=== PATIENT | female | born 1950 | race African-American/Black ===

== ENCOUNTER 2018-06-02 15:42 | Emergency (ER) | payer MEDICARE ==
[~2018-06-02] VITALS: Ht 160 cm; Wt 51.0 kg
[~2018-06-02 15:42] MED LIST: TYLENOL 4 PO
[2018-06-02 15:55] VITALS: BP 142/75
== END 2018-06-03 | disposition left against medical advice (07) ==
LOC: ER 19:10
DX: G43.809 Other migraine, not intractable, without status migrainosus (principal)
CPT/HCPCS: 99281

== ENCOUNTER 2020-01-03 11:07 | Emergency (ER) | payer MEDICARE ==
[~2020-01-03] VITALS: Ht 160 cm; Wt 50.0 kg
[2020-01-03 11:35] VITALS: BP 154/77
[2020-01-03] MEDS ORDERED: HYDROCODONE/ACETAMINOPHEN 5/325MG TABLET PO ONE (12:00)
== END 2020-01-03 13:50 | disposition home or self-care (01) ==
LOC: ER 13:30
DX: S00.83XA Contusion of other part of head, initial encounter (principal); G43.909 Migraine, unspecified, not intractable, without status migrainosus; J44.9 Chronic obstructive pulmonary disease, unspecified; X58.XXXA Exposure to other specified factors, initial encounter; W18.39XA Other fall on same level, initial encounter; Y93.89 Activity, other specified; Y92.89 Other specified places as the place of occurrence of the external cause; Y99.8 Other external cause status
CPT/HCPCS: 99283

== ENCOUNTER 2020-05-11 11:19 | Inpatient (IN) | payer MEDICARE ==
[~2020-05-11] VITALS: Ht 160 cm; Wt 44.9 kg
[~2020-05-11 11:19] MED LIST changes: +METH-611 PO; -TYLENOL 4 PO
[2020-05-11 13:39] LABS: BASOPHILS % 0.5 % (0.0-2.0); EOSINOPHILS % 0.6 % (0.0-5.0); HEMATOCRIT. 38.9 % (36.0-48.0); HEMOGLOBIN. 13.6 g/dL (12.0-16.0); LYMPHOCYTES % 28.2 % (20.0-50.0); MEAN CORPUSCULAR HEMOGLOBIN 32.9 pg (28.0-32.0); MEAN CORPUSCULAR VOLUME 94.3 fL (81.0-99.0); MEAN PLATELET VOLUME 9.6 fl (7.4-10.4); MONOCYTES % 10.2 % (2.0-8.0); NEUTROPHILS % 60.5 % (40.0-76.0); PLATELET 158 x1000/uL (130-400); RED BLOOD CELL COUNT 4.13 mill/uL (4.2-5.4); RED CELL DISTRIBUTION WIDTH 13.1 % (11.6-14.6)
[2020-05-11 13:44] LABS: CHLORIDE 101 mEq/L (98-107)
[2020-05-11 16:00] VITALS: BP 137/80
[2020-05-11 16:02] LABS: *AMPHETAMINES SCREEN URINE NEGATIVE (NEGATIVE)
[2020-05-11 16:03] LABS: *BARBITURATES SCREEN URINE NEGATIVE (NEGATIVE); *BENZODIAZEPINES SCREEN URINE NEGATIVE (NEGATIVE); *COCAINE SCREEN URINE NEGATIVE (NEGATIVE); CANNABINOID URINE SCREEN NEGATIVE (NEGATIVE); METHADONE URINE SCREEN NEGATIVE (NEGATIVE); OPIATES URINE SCREEN PRESUMTIVE POSITIVE (NEGATIVE); PHENCYCLIDINE URINE SCREEN NEGATIVE (NEGATIVE)
[2020-05-11 17:59] VITALS: BP 137/80
[2020-05-11 20:00] VITALS: BP 165/54
[2020-05-11] MEDS ORDERED: ONDANSETRON HCL 4MG/2ML INJ IV PRN (22:00)
[2020-05-11] MEDS ORDERED: DIPHENHYDRAMINE 50MG/ML VIAL IV PRN (22:00)
[2020-05-11] MEDS ORDERED: ZOLPIDEM TARTRATE 5MG TABLET PO PRN (22:00)
[2020-05-11] MEDS ORDERED: GUAIFENESIN 200MG/10ML SUGAR FREE UDC PO PRN (22:00)
[2020-05-11] MEDS ORDERED: CLONIDINE 0.1MG TABLET PO PRN (22:00)
[2020-05-11] MEDS ORDERED: ACETAMINOPHEN 325MG TABLET PO PRN ×2 (22:00)
[2020-05-11] MEDS ORDERED: MAGNESIUM/ALUMINUM HYDROXIDE/SIMETHICONE 30ML UDC PO PRN (22:00)
[2020-05-11] MEDS ORDERED: IPRATROPIUM/ALBUTEROL 0.5-3(2.5)MG/3ML NEB HHN PRN (22:00)
[2020-05-11] MEDS ORDERED: ACETAMINOPHEN WITH CODEINE 300/60MG TABLET PO PRN (22:00)
[2020-05-11] MEDS ORDERED: MAGNESIUM HYDROXIDE 400MG/5ML 30ML UDC PO PRN (22:00)
[2020-05-11] MEDS: POTASSIUM CHLORIDE 20MEQ TABLET SR PO SCH (22:34)
[2020-05-11] MEDS: MORPHINE SULFATE 2 MG/ML CPJ (NOT FOR IM USE) IV PRN (22:35)
[2020-05-11] MEDS: SODIUM CHLORIDE 0.9% INJ 3ML FLUSH IVF SCH (22:36)
[2020-05-12] VITALS: BP 119/61
[2020-05-12] MEDS: POTASSIUM CHLORIDE 20MEQ TABLET SR PO NR ×2 (03:00→07:01)
[2020-05-12] MEDS: POTASSIUM CHLORIDE 20MEQ TABLET SR PO SCH (03:14)
[2020-05-12 04:00] VITALS: BP 133/63
[2020-05-12] MEDS: MORPHINE SULFATE 2 MG/ML CPJ (NOT FOR IM USE) IV PRN (05:20)
[2020-05-12] MEDS: SODIUM CHLORIDE 0.9% INJ 3ML FLUSH IVF SCH ×3 (06:00→20:48)
[2020-05-12 07:15] LABS: CHLORIDE 106 mEq/L (98-107)
[2020-05-12 08:00] VITALS: BP 120/68
[2020-05-12] MEDS: NICOTINE 14MG PATCH TD SCH (08:23)
[2020-05-12] MEDS: BUDESONIDE 0.5MG/2ML NEB HHN SCH ×2 (10:04→21:27)
[2020-05-12 11:57] VITALS: BP 104/46
[2020-05-12 16:00] VITALS: BP 100/59
[2020-05-12 20:00] VITALS: BP 123/75
[2020-05-12] MEDS ORDERED: MAGNESIUM 2 G PREMIX 50 ML IV SCH (20:00)
[2020-05-12 20:07] LABS: CHLORIDE 104 mEq/L (98-107)
[2020-05-13] VITALS: BP 133/85
[2020-05-13 04:00] VITALS: BP 131/62
[2020-05-13] MEDS: SODIUM CHLORIDE 0.9% INJ 3ML FLUSH IVF SCH ×2 (06:27→13:49)
[2020-05-13 08:00] VITALS: BP 100/41
[2020-05-13 08:01] LABS: T4 FREE 1.33 ng/dL (0.76-1.46)
[2020-05-13] MEDS: NICOTINE 14MG PATCH TD SCH (08:56)
[2020-05-13] MEDS: BUDESONIDE 0.5MG/2ML NEB HHN SCH (09:47)
[2020-05-13 12:14] VITALS: BP 110/50
[2020-05-13] MEDS ORDERED: KETOROLAC 15MG/ML VIAL IV NR (13:30)
[2020-05-13 14:24] VITALS: BP 110/50
== END 2020-05-13 19:19 | disposition home or self-care (01) | DRG 641 ==
LOC: ER 11:19 → 8WST 14:38 → EDBEDREQTM 14:43 → ENRESERV 15:51 → CANRESERV 15:58 → ENRESERV 15:58
PROVIDERS: ADMIT Internal Medicine; ATTEND Internal Medicine
DX: E87.6 Hypokalemia (principal); G43.909 Migraine, unspecified, not intractable, without status migrainosus; J44.9 Chronic obstructive pulmonary disease, unspecified; F17.210 Nicotine dependence, cigarettes, uncomplicated; E03.9 Hypothyroidism, unspecified; Z90.710 Acquired absence of both cervix and uterus; Z79.899 Other long term (current) drug therapy
CPT/HCPCS: 36415; 71045; 80048; 80051; 80053; 80305; 83605; 83735; 83880; 84439; 84443; 84481; 84484; 85025; 93005; 94640; 99285; J2270; J3475

== ENCOUNTER 2020-10-22 04:29 | Emergency (ER) | payer MEDICARE ==
[~2020-10-22] VITALS: Ht 160 cm; Wt 49.0 kg
[2020-10-22 04:31] VITALS: BP 137/60
[2020-10-22] MEDS ORDERED: ACETAMINOPHEN 325MG TABLET PO ONE (05:30)
[2020-10-22] MEDS ORDERED: IBUPROFEN 600MG TABLET PO ONE (05:30)
[2020-10-22] MEDS ORDERED: AMOXICILLIN/POTASSIUM CLAVULANATE 500/125MG TAB PO ONE (05:30)
[2020-10-22] MEDS ORDERED: OXYCODONE HCL 5MG TABLET PO ONE (05:45)
== END 2020-10-22 06:34 | disposition home or self-care (01) ==
LOC: ER 04:29
DX: K02.9 Dental caries, unspecified (principal); K08.89 Other specified disorders of teeth and supporting structures; G43.909 Migraine, unspecified, not intractable, without status migrainosus; Z90.710 Acquired absence of both cervix and uterus; Z98.890 Other specified postprocedural states
CPT/HCPCS: 99283

== ENCOUNTER 2021-07-22 18:25 | Emergency (ER) | payer MEDICARE ==
[~2021-07-22 18:25] MED LIST changes: -METH-611 PO; +METH-819 PO
== END 2021-07-22 18:59 | disposition left against medical advice (07) ==
LOC: ER 18:25
DX: Z53.21 Procedure and treatment not carried out due to patient leaving prior to being seen by health care provider (principal)

== ENCOUNTER 2021-09-22 07:25 | Emergency (ER) | payer MEDICARE ==
[~2021-09-22] VITALS: Ht 160 cm; Wt 65.0 kg
[2021-09-22] MEDS ORDERED: PENICILLIN V POTASSIUM 250MG TABLET PO STA (08:22)
[2021-09-22] MEDS ORDERED: NAPR-1176 MT (08:29)
[2021-09-22] MEDS ORDERED: PENI500T MT ×2 (08:29→08:56)
[2021-09-22] MEDS ORDERED: OXYCODONE HCL/ACETAMINOPHEN 5/325MG TABLET PO ONE (08:30)
[2021-09-22 08:39] VITALS: BP 135/97
[2021-09-22] MEDS ORDERED: HYDR-4001 MT (08:56)
== END 2021-09-22 08:55 | disposition home or self-care (01) ==
LOC: ER 07:25
DX: K04.7 Periapical abscess without sinus (principal)
CPT/HCPCS: 99283

== ENCOUNTER 2023-05-30 12:22 | Inpatient (IN) | payer MEDICARE ==
[~2023-05-30] VITALS: Ht 160 cm; Wt 45.0 kg
[~2023-05-30 12:22] MED LIST changes: +HYDR-4001 MT; +NAPR-1176 MT; +PENI500T MT
[2023-05-30] MEDS ORDERED: ALBUTEROL (0.083%) 2.5MG/3ML NEB HHN STA (12:36)
[2023-05-30] MEDS ORDERED: METHYLPREDNISOLONE SOD SUCC 125MG/2ML (ACT-O-VIAL) IV STA (12:36)
[2023-05-30 12:48] LABS: HEMATOCRIT. 39.8 % (36.0-48.0); HEMOGLOBIN. 13.7 g/dL (12.0-16.0); MEAN CORPUSCULAR HEMOGLOBIN 31.5 pg (28.0-32.0); MEAN CORPUSCULAR VOLUME 91.7 fL (81.0-99.0); PLATELET 230 x1000/uL (130-400); RED BLOOD CELL COUNT 4.34 mill/uL (4.2-5.4); RED CELL DISTRIBUTION WIDTH 13.1 % (11.6-14.6)
[2023-05-30 12:52] LABS: CHLORIDE 105 mEq/L (98-107)
[2023-05-30] MEDS ORDERED: METHYLPREDNISOLONE SOD SUCC 125MG VIAL IV NR (13:00)
[2023-05-30] MEDS ORDERED: ENOXAPARIN 60MG/0.6ML SYR SUBCUT ONE (14:45)
[2023-05-30] MEDS ORDERED: POTASSIUM CHLORIDE INJ 30 MEQ in DEXT 5%/0.9% NACL 1,000 ML IV ONE ×2 (14:45→15:30)
[2023-05-30] MEDS ORDERED: POTASSIUM CHLORIDE 20MEQ TABLET SR PO SCH (14:45)
[2023-05-30] MEDS ORDERED: ASPIRIN 81MG TABLET PO ONE (14:45)
[2023-05-30 15:18] LABS: PLATELET ESTIMATE NORMAL
[2023-05-30] MEDS ORDERED: ONDANSETRON HCL 4MG/2ML INJ IV STA (16:08)
[2023-05-30] MEDS ORDERED: MORPHINE SULFATE 4 MG/ML CPJ (NOT FOR IM USE) IV STA (16:08)
[2023-05-30 16:40] VITALS: PULSE 92; RESP 24; O2SAT 96
[2023-05-30] MEDS ORDERED: ALBUTEROL (0.083%) 2.5MG/3ML NEB ONE (16:42)
[2023-05-30 18:00] VITALS: BP_SYST 105; BP_SYST 112; BP_DIAS 56; BP_DIAS 64; PULSE 102; PULSE 96; RESP 19; RESP 20; TEMP 98.1
[2023-05-30] MEDS ORDERED: T4 PO (19:45)
[2023-05-30] MEDS ORDERED: VARE1TAB21 PO (19:46)
[2023-05-30] MEDS ORDERED: ALBU6.7H3 INH (19:47)
[2023-05-30] MEDS ORDERED: OXYC-100 PO (19:50)
[2023-05-30] MEDS ORDERED: BREZTRI AEROSPHERE ORI (19:53)
[2023-05-30 20:00] VITALS: BP 114/69; PULSE 94; RESP 22; TEMP 98.3
[2023-05-30] MEDS ORDERED: ONDANSETRON HCL 4MG/2ML INJ IV PRN (21:15)
[2023-05-30] MEDS ORDERED: IPRATROPIUM/ALBUTEROL 0.5-3(2.5)MG/3ML NEB HHN PRN (21:15)
[2023-05-30 22:00] VITALS: BP 89/64; PULSE 106; RESP 29
[2023-05-30] MEDS ORDERED: LEVOFLOXACIN 500MG PREMIX 100 ML IV SCH (22:00)
[2023-05-30] MEDS: ENOXAPARIN 40MG/0.4ML SYR SUBCUT SCH (22:59)
[2023-05-30] MEDS: ACETAMINOPHEN 325MG TABLET PO PRN (22:59)
[2023-05-31] VITALS (13 sets, daily range): BP systolic 95–127; BP diastolic 55–78; PULSE 72–110; RESP 15–35; TEMP 97.3–98.8
[2023-05-31 00:12] LABS: CREATINE KINASE MB FRACTION 6.7 ng/mL (0.5-3.6)
[2023-05-31 06:16] LABS: BASOPHILS % 0.2 % (0.0-2.0); CHLORIDE 110 mEq/L (98-107); HEMATOCRIT. 36.9 % (36.0-48.0); HEMOGLOBIN. 12.7 g/dL (12.0-16.0); LYMPHOCYTES % 20.1 % (20.0-50.0); MEAN CORPUSCULAR HEMOGLOBIN 32.1 pg (28.0-32.0); MEAN CORPUSCULAR VOLUME 93.4 fL (81.0-99.0); MEAN PLATELET VOLUME 9.8 fl (7.4-10.4); NEUTROPHILS % 65.7 % (40.0-76.0); PLATELET 203 x1000/uL (130-400); RED BLOOD CELL COUNT 3.95 mill/uL (4.2-5.4)
[2023-05-31 06:20] LABS: PHOSPHORUS 3.2 mg/dL (2.5-4.9)
[2023-05-31 06:34] LABS: INR 1.1; PROTHROMBIN TIME 11.4 sec (9.6-11.0)
[2023-05-31 06:41] LABS: CREATINE KINASE MB FRACTION 5.8 ng/mL (0.5-3.6)
[2023-05-31] MEDS ORDERED: PNEUMOCOCCAL 23-VAL P-SAC VAC 0.5 ML IM ONE (09:00)
[2023-05-31] MEDS ORDERED: NITROGLYCERIN OINT 1GM/INCH UDPKT TD NR (09:00)
[2023-05-31] MEDS ORDERED: MAGNESIUM 2 G PREMIX 50 ML IV NR (10:00)
[2023-05-31] MEDS: ENOXAPARIN 40MG/0.4ML SYR SUBCUT SCH (10:04)
[2023-05-31] MEDS: DILTIAZEM HCL 30MG TABLET PO SCH ×3 (10:22→21:55)
[2023-05-31] MEDS ORDERED: DILTIAZEM HCL 30MG TABLET PO NR (11:00)
[2023-05-31] MEDS ORDERED: DILTIAZEM HCL 5MG/ML 5ML VIAL IV NR (11:30)
[2023-05-31] MEDS ORDERED: HYDROCODONE/ACETAMINOPHEN 5/325MG TABLET PO PRN (12:30)
[2023-05-31] MEDS ORDERED: NALOXONE HCL 0.4MG/ML VIAL IV PRN (12:45)
[2023-05-31] MEDS: METHYLPREDNISOLONE SOD SUCC 40MG VIAL IV SCH ×2 (13:30→17:00)
[2023-05-31] MEDS: HYDROCODONE/ACETAMINOPHEN 10/325MG TABLET PO PRN ×2 (14:35→21:55)
[2023-05-31] MEDS: LEVOFLOXACIN 250MG PREMIX 50 ML IV SCH (21:05)
[2023-05-31] MEDS: KETOROLAC 15MG/ML VIAL IV PRN (21:06)
[2023-06-01] VITALS (14 sets, daily range): BP systolic 90–130; BP diastolic 49–83; PULSE 63–89; RESP 14–21; TEMP 97.4–98.6
[2023-06-01] MEDS: DILTIAZEM HCL 30MG TABLET PO SCH ×3 (05:00→22:16)
[2023-06-01 06:47] LABS: BASOPHILS % 0.1 % (0.0-2.0); HEMATOCRIT. 37.2 % (36.0-48.0); HEMOGLOBIN. 12.6 g/dL (12.0-16.0); MEAN CORPUSCULAR HEMOGLOBIN 31.9 pg (28.0-32.0); MEAN CORPUSCULAR VOLUME 93.9 fL (81.0-99.0); MEAN PLATELET VOLUME 9.9 fl (7.4-10.4); MONOCYTES % 2.5 % (2.0-8.0); NEUTROPHILS % 89.4 % (40.0-76.0); PLATELET 198 x1000/uL (130-400); RED BLOOD CELL COUNT 3.96 mill/uL (4.2-5.4)
[2023-06-01 06:49] LABS: CHLORIDE 107 mEq/L (98-107)
[2023-06-01] MEDS: METHYLPREDNISOLONE SOD SUCC 40MG VIAL IV SCH ×2 (09:00→22:17)
[2023-06-01 10:43] LABS: BG BASE EXCESS 2.3 mmol/L (-2.0-2.0); BG CARBOXYHEMOGLOBIN 0.5 % (0.5-1.5); BG DEOXYHEMOGLOBIN 17.1 % (0.0-5.0); BG FRACTION INSPIRED OXYGEN 21; BG HCO3 ACT 26.9 mmol/L (22.0-26.0); BG METHEMOGLOBIN 0.2 % (0.0-1.5); BG OXYGEN SATURATION 82.8 % (92.0-98.5); BG OXYHEMOGLOBIN 82.2 % (94.0-97.0); BG PCO2 41.3 mmHg (35.0-45.0); BG PH 7.431 (7.350-7.450); BG PO2 47.4 mmHg (75.0-100.0); BG SAMPLE SITE RIGHT BRACHIAL; BG TOTAL HEMOGLOBIN 14.4 g/dL (12.0-18.0); BG VENT MODE ROOM AIR
[2023-06-01] MEDS: GUAIFENESIN-DM 200MG-20MG/10ML UDC PO PRN ×2 (11:19→19:17)
[2023-06-01] MEDS: OXYCODONE HCL/ACETAMINOPHEN 5/325MG TABLET PO PRN ×2 (11:20→16:45)
[2023-06-01] MEDS: ENOXAPARIN 30MG/0.3ML SYR SUBCUT SCH (11:21)
[2023-06-01] MEDS: GUAIFENESIN 600MG ER TABLET PO SCH ×2 (11:36→22:16)
[2023-06-01] MEDS ORDERED: METHYLPREDNISOLONE SOD SUCC 40MG VIAL IV SCH ×2 (12:30→14:30)
[2023-06-01] MEDS: KETOROLAC 15MG/ML VIAL IV PRN ×2 (13:15→19:17)
[2023-06-01] MEDS: ACETAMINOPHEN 325MG TABLET PO PRN (16:42)
[2023-06-01] MEDS: LEVOFLOXACIN 250MG PREMIX 50 ML IV SCH (22:17)
[2023-06-02] VITALS (13 sets, daily range): BP systolic 109–150; BP diastolic 46–86; PULSE 68–94; RESP 16–22; TEMP 97.6–98.6
[2023-06-02] MEDS: KETOROLAC 15MG/ML VIAL IV PRN ×3 (03:01→15:00)
[2023-06-02] MEDS: DILTIAZEM HCL 30MG TABLET PO SCH ×3 (07:12→22:14)
[2023-06-02] MEDS: GUAIFENESIN-DM 200MG-20MG/10ML UDC PO PRN ×2 (08:40→14:59)
[2023-06-02] MEDS: ENOXAPARIN 30MG/0.3ML SYR SUBCUT SCH (08:41)
[2023-06-02] MEDS: OXYCODONE HCL/ACETAMINOPHEN 5/325MG TABLET PO PRN (08:42)
[2023-06-02] MEDS: METHYLPREDNISOLONE SOD SUCC 40MG VIAL IV SCH ×2 (08:48→22:14)
[2023-06-02] MEDS: GUAIFENESIN 600MG ER TABLET PO SCH ×2 (08:49→22:14)
[2023-06-02] MEDS: LEVOFLOXACIN 250MG PREMIX 50 ML IV SCH (22:13)
[2023-06-03] VITALS (11 sets, daily range): BP systolic 108–136; BP diastolic 48–88; PULSE 67–91; RESP 16–24; TEMP 97.3–99.3
[2023-06-03] MEDS: DILTIAZEM HCL 30MG TABLET PO SCH ×3 (06:37→19:03)
[2023-06-03] MEDS: GUAIFENESIN 600MG ER TABLET PO SCH ×2 (09:56→21:01)
[2023-06-03] MEDS: METHYLPREDNISOLONE SOD SUCC 40MG VIAL IV SCH ×2 (10:01→23:20)
[2023-06-03] MEDS: ENOXAPARIN 30MG/0.3ML SYR SUBCUT SCH (10:01)
[2023-06-03 11:16] LABS: BASOPHILS % 0.1 % (0.0-2.0); HEMATOCRIT. 41.8 % (36.0-48.0); HEMOGLOBIN. 14.1 g/dL (12.0-16.0); LYMPHOCYTES % 9.9 % (20.0-50.0); MEAN CORPUSCULAR HEMOGLOBIN 31.3 pg (28.0-32.0); MEAN CORPUSCULAR VOLUME 93.2 fL (81.0-99.0); MEAN PLATELET VOLUME 10.3 fl (7.4-10.4); MONOCYTES % 4.9 % (2.0-8.0); NEUTROPHILS % 85.1 % (40.0-76.0); PLATELET 226 x1000/uL (130-400); RED BLOOD CELL COUNT 4.49 mill/uL (4.2-5.4); RED CELL DISTRIBUTION WIDTH 12.9 % (11.6-14.6)
[2023-06-03 11:37] LABS: CHLORIDE 103 mEq/L (98-107)
[2023-06-03] MEDS: LEVOFLOXACIN 250MG TABLET PO SCH (21:01)
[2023-06-03] MEDS: OXYCODONE HCL/ACETAMINOPHEN 5/325MG TABLET PO PRN (21:13)
[2023-06-04] VITALS (9 sets, daily range): BP systolic 108–133; BP diastolic 66–85; PULSE 66–107; RESP 15–18; TEMP 97.7–99.1; O2SAT 97–99
[2023-06-04] MEDS: DILTIAZEM HCL 30MG TABLET PO SCH ×5 (01:15→23:38)
[2023-06-04 01:55] LABS: CLARITY URINE CLEAR (CLEAR); COLOR URINE YELLOW (YELLOW); KETONES URINE NEGATIVE (NEGATIVE); LEUKOCYTE ESTERASE URINE NEGATIVE (NEGATIVE); NITRITE URINE NEGATIVE (NEGATIVE); OCCULT BLOOD URINE NEGATIVE (NEGATIVE); PH URINE 7.5 (4.5-8.0); PROTEIN URINE 2+ (NEGATIVE); SPECIFIC GRAVITY URINE 1.013 (1.005-1.030)
[2023-06-04 02:07] LABS: *AMPHETAMINES SCREEN URINE NEGATIVE (NEGATIVE); *BARBITURATES SCREEN URINE NEGATIVE (NEGATIVE); *BENZODIAZEPINES SCREEN URINE NEGATIVE (NEGATIVE); *COCAINE SCREEN URINE NEGATIVE (NEGATIVE); CANNABINOID URINE SCREEN NEGATIVE (NEGATIVE); METHADONE URINE SCREEN NEGATIVE (NEGATIVE); OPIATES URINE SCREEN PRESUMTIVE POSITIVE (NEGATIVE); PHENCYCLIDINE URINE SCREEN NEGATIVE (NEGATIVE)
[2023-06-04] MEDS: IPRATROPIUM/ALBUTEROL 0.5-3(2.5)MG/3ML NEB HHN SCH ×2 (03:56→07:51)
[2023-06-04 07:36] LABS: HEMOGLOBIN. 14.9 g/dL (12.0-16.0); MEAN CORPUSCULAR HEMOGLOBIN 31.9 pg (28.0-32.0); MEAN CORPUSCULAR VOLUME 91.8 fL (81.0-99.0); MEAN PLATELET VOLUME 10.8 fl (7.4-10.4); PLATELET 224 x1000/uL (130-400); RED BLOOD CELL COUNT 4.68 mill/uL (4.2-5.4)
[2023-06-04 07:44] LABS: CHLORIDE 102 mEq/L (98-107)
[2023-06-04] MEDS: GUAIFENESIN 600MG ER TABLET PO SCH ×2 (08:24→20:39)
[2023-06-04] MEDS: METHYLPREDNISOLONE SOD SUCC 40MG VIAL IV SCH ×2 (08:25→21:56)
[2023-06-04] MEDS: ENOXAPARIN 30MG/0.3ML SYR SUBCUT SCH (08:27)
[2023-06-04] MEDS ORDERED: DILTIAZEM HCL 5MG/ML 5ML VIAL IV NR ×3 (09:30→12:45)
[2023-06-04] MEDS ORDERED: LIDOCAINE HCL 1% 10 MG/ML 10ML VIAL ONE (09:41)
[2023-06-04] MEDS ORDERED: DIGOXIN 500MCG/2ML AMP IV NR ×2 (10:15→11:15)
[2023-06-04 14:16] LABS: PLATELET ESTIMATE NORMAL
[2023-06-04] MEDS: GUAIFENESIN-DM 200MG-20MG/10ML UDC PO PRN (17:33)
[2023-06-04] MEDS: HYDROCODONE/ACETAMINOPHEN 10/325MG TABLET PO PRN (17:37)
[2023-06-04] MEDS: LEVOFLOXACIN 250MG TABLET PO SCH (20:39)
[2023-06-05] VITALS (8 sets, daily range): BP systolic 105–145; BP diastolic 62–88; PULSE 78–95; RESP 15–21; TEMP 97.9–98.9; O2SAT 96
[2023-06-05] MEDS: DILTIAZEM HCL 30MG TABLET PO SCH ×3 (05:05→17:07)
[2023-06-05] MEDS ORDERED: LIDOCAINE HCL/PF 2% 20MG/ML 5 ML/VIAL ONE (07:46)
[2023-06-05] MEDS ORDERED: HEPARIN 1000 UNITS/ML 10ML ONE (07:46)
[2023-06-05] MEDS ORDERED: IODIXANOL 320MG/ML 100 ML BOTTLE IV ONE (07:46)
[2023-06-05] MEDS ORDERED: MIDAZOLAM HCL 2 MG/2 ML VIAL ONE (08:37)
[2023-06-05] MEDS ORDERED: FENTANYL CITRATE/PF 50MCG/ML 2ML VIAL ONE (08:37)
[2023-06-05] MEDS: GUAIFENESIN 600MG ER TABLET PO SCH ×2 (09:11→12:37)
[2023-06-05] MEDS ORDERED: ATROPINE SULFATE 1MG/10ML SYR IV PRN (09:30)
[2023-06-05] MEDS ORDERED: ACETAMINOPHEN 325MG TABLET PO PRN (09:30)
[2023-06-05] MEDS ORDERED: ONDANSETRON HCL 4MG/2ML INJ IV PRN (09:30)
[2023-06-05 12:34] LABS: BASOPHILS % 0.2 % (0.0-2.0); HEMATOCRIT. 42.7 % (36.0-48.0); HEMOGLOBIN. 14.6 g/dL (12.0-16.0); MEAN CORPUSCULAR HEMOGLOBIN 31.6 pg (28.0-32.0); MONOCYTES % 10.3 % (2.0-8.0); NEUTROPHILS % 79.5 % (40.0-76.0); PLATELET 202 x1000/uL (130-400); RED BLOOD CELL COUNT 4.64 mill/uL (4.2-5.4)
[2023-06-05] MEDS: METHYLPREDNISOLONE SOD SUCC 40MG VIAL IV SCH (12:37)
[2023-06-05 13:20] LABS: CHLORIDE 101 mEq/L (98-107)
[2023-06-05] MEDS: OXYCODONE HCL/ACETAMINOPHEN 5/325MG TABLET PO PRN ×2 (16:17→20:13)
== END 2023-06-05 23:00 | disposition home or self-care (01) | DRG 280 ==
LOC: ER 13:19 → EDBEDREQTM 16:20 → EDBEDREQ 16:20 → EDBEDREQSVC 16:20 → 5EST 18:29
PROVIDERS: ADMIT Internal Medicine; ATTEND Internal Medicine
PROC: 4A023N7 Measurement of Cardiac Sampling and Pressure, Left Heart, Percutaneous Approach (ICD-10-PCS; principal; 2023-06-04)
PROC: B211YZZ Fluoroscopy of Multiple Coronary Arteries using Other Contrast (ICD-10-PCS; 2023-06-04)
PROC: B215YZZ Fluoroscopy of Left Heart using Other Contrast (ICD-10-PCS; 2023-06-04)
PROC: 05HY33Z Insertion of Infusion Device into Upper Vein, Percutaneous Approach (ICD-10-PCS; 2023-06-04)
PROC: B54MZZA Ultrasonography of Right Upper Extremity Veins, Guidance (ICD-10-PCS; 2023-06-04)
DX: I21.4 Non-ST elevation (NSTEMI) myocardial infarction (principal); J96.00 Acute respiratory failure, unspecified whether with hypoxia or hypercapnia; J44.1 Chronic obstructive pulmonary disease with (acute) exacerbation; G43.909 Migraine, unspecified, not intractable, without status migrainosus; I50.9 Heart failure, unspecified; E87.6 Hypokalemia; I11.0 Hypertensive heart disease with heart failure; Z87.891 Personal history of nicotine dependence; Z90.710 Acquired absence of both cervix and uterus; Z79.899 Other long term (current) drug therapy
CPT/HCPCS: 36415; 36573; 36600; 71045; 80048; 80053; 80305; 81003; 82375; 82550; 82553; 82805; 83735; 83880; 84100; 84484; 85025; 93005; 93306; 94640; 94664; 99291; C1725; C1769; J1160; J1644; J1650; J1885; J1956; J2250; J2270; J2405; J2920; J2930; J3010; J3475; J3480; J3490; J7042; Q9967

== ENCOUNTER 2023-07-23 05:03 | Emergency (ER) | payer MEDICARE ==
[~2023-07-23] VITALS: Ht 157.5 cm; Wt 50.0 kg
[~2023-07-23 05:03] MED LIST changes: +ALBU6.7H3 INH; +BREZTRI AEROSPHERE ORI; -HYDR-4001 MT; -NAPR-1176 MT; +OXYC-100 PO; -PENI500T MT; +T4 PO; +VARE1TAB21 PO
[2023-07-23] MEDS ORDERED: METHYLPREDNISOLONE SOD SUCC 125MG/2ML (ACT-O-VIAL) IV STA ×2 (05:09→05:46)
[2023-07-23] MEDS ORDERED: ALBUTEROL (0.083%) 2.5MG/3ML NEB HHN STA ×2 (05:09→05:46)
[2023-07-23] MEDS ORDERED: IPRATROPIUM BROMIDE (0.02%) 0.5MG/2.5ML NEB HHN STA ×2 (05:09→05:46)
[2023-07-23 05:10] VITALS: PULSE 80; RESP 20; O2SAT 99
[2023-07-23 05:39] LABS: BASOPHILS % 0.5 % (0.0-2.0); EOSINOPHILS % 8.7 % (0.0-5.0); HEMATOCRIT. 35.9 % (36.0-48.0); HEMOGLOBIN. 11.9 g/dL (12.0-16.0); LYMPHOCYTES % 34.9 % (20.0-50.0); MEAN CORPUSCULAR HEMOGLOBIN 31.1 pg (28.0-32.0); MEAN CORPUSCULAR VOLUME 94.1 fL (81.0-99.0); MEAN PLATELET VOLUME 10.3 fl (7.4-10.4); MONOCYTES % 7.9 % (2.0-8.0); PLATELET 217 x1000/uL (130-400); RED BLOOD CELL COUNT 3.81 mill/uL (4.2-5.4); RED CELL DISTRIBUTION WIDTH 13.7 % (11.6-14.6); WHITE BLOOD COUNT 7.2 x1000/uL (4.5-11.0)
[2023-07-23 05:46] LABS: CHLORIDE 106 mEq/L (98-107); INDEX HEMOLYSI 3 (1-3); INDEX ICTERIC 1 (1-4); INDEX LIPEMIC 1 (1-3); POTASSIUM 3.1 mEq/L (3.5-5.1); SODIUM 142 mEq/L (136-145)
[2023-07-23] MEDS ORDERED: MAGNESIUM 2 G PREMIX 50 ML IV STA (05:46)
[2023-07-23 05:56] LABS: ALANINE AMINOTRANSFERASE 16 IU/L (13-61); ALBUMIN 3.3 g/dL (3.4-5.0); ASPARTATE AMINOTRANSFERASE 20 IU/L (15-37); BILIRUBIN TOTAL 0.6 mg/dL (0.1-1.0); CALCIUM 8.5 mg/dL (8.5-10.1); CARBON DIOXIDE 33 mEq/L (21-32); CREATININE 0.5 mg/dL (0.6-1.3); GLUCOSE 117 mg/dL (70-105); NT PRO B-TYPE NATRIURETIC PEP 190 pg/mL (5-125); PROTEIN TOTAL 6.4 g/dL (6.0-8.3); TROPONIN I HIGH SENSITIVITY 20 ng/L (<54); UREA NITROGEN BLOOD 4 mg/dL (7-21)
[2023-07-23] MEDS ORDERED: METOCLOPRAMIDE HCL 10MG/2ML VIAL IV ONE (06:00)
[2023-07-23] MEDS ORDERED: KETOROLAC 30MG/ML VIAL IV ONE (06:00)
[2023-07-23 07:00] VITALS: TEMP 98.2
[2023-07-23] MEDS ORDERED: SUMATRIPTAN SUCCINATE 6MG/0.5ML VIAL SUBCUT ONE (12:30)
[2023-07-23] MEDS ORDERED: SUMATRIPTAN SUCCINATE 6MG/0.5ML VIAL SUBCUT NR (13:15)
[2023-07-23 13:35] VITALS: BP 134/66; PULSE 91; RESP 20
== END 2023-07-23 13:54 | disposition short-term general hospital (02) ==
LOC: ER 05:03 → CANBEDREQ 11:05 → ER 13:54
DX: J44.1 Chronic obstructive pulmonary disease with (acute) exacerbation (principal); G43.909 Migraine, unspecified, not intractable, without status migrainosus; Z90.710 Acquired absence of both cervix and uterus
CPT/HCPCS: 99285; 96365; 96375; 71045; 87426; 80053; 83880; 85025; 84484; 36415; 94644; J1885; J3475; J2930; J2765; C9803; J3030

== ENCOUNTER → 2024-02-16 | Emergency (ER) | payer MEDICARE ==
[~2024-02-16] VITALS: Ht 165.1 cm; Wt 65.0 kg
[2024-02-16 20:14] VITALS: TEMP 98
[2024-02-16] MEDS: IPRATROPIUM BROMIDE (0.02%) 0.5MG/2.5ML NEB HHN STA (20:37)
[2024-02-16] MEDS: MAGNESIUM 2 G PREMIX 50 ML IV ONE (21:19)
[2024-02-16] MEDS: METHYLPREDNISOLONE SOD SUCC 125MG/2ML (ACT-O-VIAL) IV STA (21:19)
[2024-02-16] MEDS: ONDANSETRON HCL 4MG/2ML INJ IV STA (21:19)
[2024-02-16] MEDS: MORPHINE SULFATE 4 MG/ML INJ (FOR IV/IM USE) IV STA (21:19)
[2024-02-16 21:20] VITALS: PULSE 86; RESP 20; O2SAT 98
[2024-02-16 21:22] LABS: BASOPHILS % 0.6 % (0.0-2.0); EOSINOPHILS % 1.2 % (0.0-5.0); HEMATOCRIT. 33.9 % (36.0-48.0); HEMOGLOBIN. 11.3 g/dL (12.0-16.0); LYMPHOCYTES % 12.9 % (20.0-50.0); MEAN CORPUSCULAR HEMOGLOBIN 31.9 pg (28.0-32.0); MEAN CORPUSCULAR HGB CONC 33.3 g/dL (31.0-37.0); MEAN CORPUSCULAR VOLUME 95.8 fL (81.0-99.0); MONOCYTES % 3.6 % (2.0-8.0); NEUTROPHILS % 81.7 % (40.0-76.0); PLATELET 185 x1000/uL (130-400); RED BLOOD CELL COUNT 3.54 mill/uL (4.2-5.4); RED CELL DISTRIBUTION WIDTH 13.2 % (11.6-14.6); WHITE BLOOD COUNT 6.1 x1000/uL (4.5-11.0)
[2024-02-16] MEDS: ALBUTEROL (0.083%) 2.5MG/3ML NEB HHN SCH (21:35)
[2024-02-16 21:40] LABS: ALANINE AMINOTRANSFERASE 14 IU/L (10-49); ALBUMIN 4.3 g/dL (3.2-4.8); ASPARTATE AMINOTRANSFERASE 23 IU/L (<34); BILIRUBIN TOTAL 0.6 mg/dL (0.1-1.0); CALCIUM 9.1 mg/dL (8.7-10.4); CARBON DIOXIDE 32 mEq/L (21-32); CHLORIDE 103 mEq/L (98-107); CREATININE 0.6 mg/dL (0.6-1.0); GLUCOSE 113 mg/dL (70-105); POTASSIUM 3.6 mEq/L (3.5-5.1); PROTEIN TOTAL 6.6 g/dL (6.0-8.3); SODIUM 141 mEq/L (136-145); UREA NITROGEN BLOOD 5 mg/dL (9-23)
[2024-02-16 21:43] LABS: TROPONIN I HIGH SENSITIVITY < 4 ng/L (3.0-34)
[2024-02-17 04:38] VITALS: BP 132/60; PULSE 88; RESP 16
== END | disposition home or self-care (01) ==
LOC: ER 20:11 → EDBEDREQ 22:55
DX: J44.9 Chronic obstructive pulmonary disease, unspecified (principal); G43.909 Migraine, unspecified, not intractable, without status migrainosus; Z90.710 Acquired absence of both cervix and uterus
CPT/HCPCS: 99285; 96365; 96375; 71045; 96366; 80053; 83880; 85025; 87040; 84484; 36415; 94640; 93005; J3475; J2930; J2405; J2270

== ENCOUNTER 2024-03-24 05:34 | Emergency (ER) | payer MEDICARE ==
[~2024-03-24] VITALS: Ht 160 cm; Wt 45.0 kg
[2024-03-24 05:36] VITALS: O2SAT 100
[2024-03-24] MEDS: ACETAMINOPHEN 500MG TABLET PO ONE (06:20)
[2024-03-24] MEDS: TRAMADOL 50MG TABLET PO ONE (06:20)
[2024-03-24 06:29] VITALS: TEMP 98.2
[2024-03-24] MEDS: PROMETHAZINE HCL 25MG TABLET PO PRN (07:00)
[2024-03-24] MEDS: MORPHINE SULFATE 4 MG/ML INJ (FOR IV/IM USE) IV ONE (08:41)
[2024-03-24] MEDS: NICARDIPINE 40MG/200ML PREMIX 200 ML IV STA (09:14)
[2024-03-24] MEDS ORDERED: T4 PO (09:44)
[2024-03-24 09:49] VITALS: BP 118/89; PULSE 81; RESP 23
== END 2024-03-24 10:23 | disposition home or self-care (01) ==
LOC: ER 06:12
DX: G43.909 Migraine, unspecified, not intractable, without status migrainosus (principal); J44.9 Chronic obstructive pulmonary disease, unspecified; Z90.710 Acquired absence of both cervix and uterus
CPT/HCPCS: 99285; 96374; J2270

== ENCOUNTER 2025-02-11 06:53 | Inpatient (IN) | payer MEDICARE, OTHER ==
[~2025-02-11] VITALS: Ht 160 cm; Wt 49.9 kg
[2025-02-11] VITALS (12 sets, daily range): BP systolic 109–142; BP diastolic 52–81; PULSE 83–100; RESP 14–26; TEMP 36.3–37.3; O2SAT 95–100
[~2025-02-11 06:53] MED LIST changes: +ALBU18HF2 IH; -BREZTRI AEROSPHERE ORI; +BUDE6.9H INH; -METH-819 PO; -OXYC-100 PO; +P20 MT; +PROT40 PO; +TUSSL MT; -VARE1TAB21 PO
[2025-02-11] MEDS: METHYLPREDNISOLONE SOD SUCC 125MG/2ML (ACT-O-VIAL) IV STA (07:25)
[2025-02-11] MEDS: MAGNESIUM 2 G PREMIX 50 ML IV STA (07:25)
[2025-02-11 07:43] LABS: BASOPHILS % 0.2 % (0.0-2.0); EOSINOPHILS % 7.1 % (0.0-5.0); HEMOGLOBIN. 11.2 g/dL (12.0-16.0); LYMPHOCYTES % 20.2 % (20.0-50.0); MEAN CORPUSCULAR HEMOGLOBIN 30.1 pg (28.0-32.0); MEAN PLATELET VOLUME 10.1 fl (7.4-10.4); MONOCYTES % 7.6 % (2.0-8.0); NEUTROPHILS % 64.9 % (40.0-76.0); PLATELET 244 x1000/uL (130-400); RED BLOOD CELL COUNT 3.72 mill/uL (4.2-5.4); RED CELL DISTRIBUTION WIDTH 13.6 % (11.6-14.6); WHITE BLOOD COUNT 7.4 x1000/uL (4.5-11.0)
[2025-02-11] MEDS: ALBUTEROL (0.083%) 2.5MG/3ML NEB HHN STA (07:49)
[2025-02-11] MEDS: IPRATROPIUM BROMIDE (0.02%) 0.5MG/2.5ML NEB HHN STA (07:49)
[2025-02-11 07:50] LABS: CHLORIDE 109 mEq/L (98-107); POTASSIUM 3.6 mEq/L (3.5-5.1); SODIUM 146 mEq/L (136-145)
[2025-02-11 07:51] LABS: CARBON DIOXIDE 32 mEq/L (21-32)
[2025-02-11 07:52] LABS: CALCIUM 9.4 mg/dL (8.7-10.4)
[2025-02-11 07:56] LABS: CREATININE 0.5 mg/dL (0.6-1.0); GLUCOSE 126 mg/dL (70-105)
[2025-02-11 07:57] LABS: TROPONIN I HIGH SENSITIVITY 28 ng/L (3.0-34); UREA NITROGEN BLOOD 10 mg/dL (9-23)
[2025-02-11 09:27] LABS: BG BASE EXCESS 2.8 mmol/L (-2.0-3.0); BG CARBOXYHEMOGLOBIN 0.2 % (0.5-1.5); BG FRACTION INSPIRED OXYGEN 40; BG HCO3 ACT 29.3 mmol/L (21.0-28.0); BG METHEMOGLOBIN 0.1 % (0.5-1.5); BG OXYHEMOGLOBIN 95.7 % (94.0-98.0); BG PCO2 53.9 mmHg (32.0-45.0); BG PH 7.353 (7.350-7.450); BG PO2 85.6 mmHg (83.0-108.0); BG SAMPLE SITE RH; BG VENT MODE NASAL CANNULA
[2025-02-11] MEDS ORDERED: ACETAMINOPHEN 325MG TABLET PO PRN ×2 (13:45)
[2025-02-11] MEDS ORDERED: DOCUSATE SODIUM 100MG CAPSULE PO PRN (13:45)
[2025-02-11] MEDS ORDERED: CLONIDINE 0.1MG TABLET PO PRN (13:45)
[2025-02-11] MEDS ORDERED: ONDANSETRON HCL 4MG/2ML INJ IV PRN (13:45)
[2025-02-11] MEDS: METHYLPREDNISOLONE SOD SUCC 125MG/2ML (ACT-O-VIAL) IV SCH (14:29)
[2025-02-11] MEDS: ENOXAPARIN 40MG/0.4ML SYR SUBCUT SCH (14:29)
[2025-02-11] MEDS: ACETAMINOPHEN WITH CODEINE 300/60MG TABLET PO PRN ×2 (15:55→21:55)
[2025-02-11] MEDS: IPRATROPIUM/ALBUTEROL 0.5-3(2.5)MG/3ML NEB NEB SCH (20:14)
[2025-02-12] VITALS (16 sets, daily range): BP systolic 108–135; BP diastolic 46–76; PULSE 78–104; RESP 11–22; TEMP 36.1–36.7; O2SAT 95–100
[2025-02-12 07:56] LABS: BASOPHILS % 0.1 % (0.0-2.0); HEMATOCRIT. 34.6 % (36.0-48.0); HEMOGLOBIN. 11.5 g/dL (12.0-16.0); LYMPHOCYTES % 9.7 % (20.0-50.0); MEAN CORPUSCULAR HEMOGLOBIN 30.3 pg (28.0-32.0); MEAN CORPUSCULAR HGB CONC 33.1 g/dL (31.0-37.0); MEAN CORPUSCULAR VOLUME 91.4 fL (81.0-99.0); MEAN PLATELET VOLUME 10.6 fl (7.4-10.4); MONOCYTES % 2.2 % (2.0-8.0); PLATELET 232 x1000/uL (130-400); RED BLOOD CELL COUNT 3.78 mill/uL (4.2-5.4); RED CELL DISTRIBUTION WIDTH 13.5 % (11.6-14.6); WHITE BLOOD COUNT 10.2 x1000/uL (4.5-11.0)
[2025-02-12 07:57] LABS: CARBON DIOXIDE 33 mEq/L (21-32); CHLORIDE 102 mEq/L (98-107); POTASSIUM 4.2 mEq/L (3.5-5.1); SODIUM 145 mEq/L (136-145)
[2025-02-12 07:58] LABS: CALCIUM 9.7 mg/dL (8.7-10.4)
[2025-02-12 08:04] LABS: CREATININE 0.6 mg/dL (0.6-1.0); GLUCOSE 138 mg/dL (70-105); UREA NITROGEN BLOOD 9 mg/dL (9-23)
[2025-02-12] MEDS: GUAIFENESIN 200MG/10ML SUGAR FREE UDC PO PRN (12:04)
[2025-02-12] MEDS: THROAT LOZENGES-BENZOCAINE/MENTH/CETYLPYRD CL LOZENGES MM PRN (17:19)
[2025-02-13] VITALS (7 sets, daily range): BP systolic 102–110; BP diastolic 35–53; PULSE 92–103; RESP 18–20; TEMP 36.5–37.1; O2SAT 94–99
[2025-02-13] MEDS ORDERED: P20 MT (12:17)
[2025-02-13] MEDS: NYSTATIN 100,000 UNITS/ML 5ML UDC SSW NR (16:17)
[2025-02-13] MEDS: NYSTATIN 100,000 UNITS/ML 5ML UDC SSW SCH (17:03)
== END 2025-02-13 20:00 | disposition home or self-care (01) | DRG 192 ==
LOC: ER 07:05 → 5EST 09:23 → EDBEDREQ 09:25 → EDBEDREQTM 09:25 → 7WST 02-12 11:21
PROVIDERS: ADMIT Internal Medicine; ATTEND Internal Medicine
PROC: 5A09357 Assistance with Respiratory Ventilation, Less than 24 Consecutive Hours, Continuous Positive Airway Pressure (ICD-10-PCS; principal; 2025-02-11)
DX: J44.1 Chronic obstructive pulmonary disease with (acute) exacerbation (principal); G43.909 Migraine, unspecified, not intractable, without status migrainosus; I50.9 Heart failure, unspecified; E11.9 Type 2 diabetes mellitus without complications; R06.03 Acute respiratory distress; I11.0 Hypertensive heart disease with heart failure; D64.9 Anemia, unspecified; F17.200 Nicotine dependence, unspecified, uncomplicated; Z79.51 Long term (current) use of inhaled steroids; Z79.899 Other long term (current) drug therapy; Z99.81 Dependence on supplemental oxygen
CPT/HCPCS: 36415; 36600; 71045; 80048; 82375; 82805; 83880; 84484; 85025; 93005; 94070; 94640; 94660; 94664; 99291; J1650; J2919; J3475